=== PATIENT | female | born 1950 | race Two or more races ===

== ENCOUNTER 2017-08-04 12:13 | Outpatient (CLI) | payer OTHER, BC ==
[~2017-08-04 12:13] MED LIST: ALTACE1.25 M1 PO; BONIVA2.5 MG PO; MOTRIN800 MG PO; TRAMADOL HCL-AP1 TAB PO; ZOCOR5 MG PO
== END 2017-08-04 15:40 | disposition home or self-care (01) ==
LOC: RAD 501 12:13
DX: M25.571 Pain in right ankle and joints of right foot (principal)

== ENCOUNTER 2017-08-05 08:12 | Outpatient (CLI) | payer OTHER, BC | END 2017-08-05 08:15 | disposition home or self-care (01) | LOC: LAB 08:12 | DX: E03.8 Other specified hypothyroidism (principal); E55.9 Vitamin D deficiency, unspecified; M85.9 Disorder of bone density and structure, unspecified; E21.3 Hyperparathyroidism, unspecified; E88.89 Other specified metabolic disorders; M81.8 Other osteoporosis without current pathological fracture; E56.1 Deficiency of vitamin K; E83.42 Hypomagnesemia ==

== ENCOUNTER 2017-08-12 10:35 | Outpatient (CLI) | payer OTHER, BC | END 2017-08-12 14:42 | disposition home or self-care (01) | LOC: RAD 501 10:35 | DX: Z76.89 Persons encountering health services in other specified circumstances (principal); S20.212A Contusion of left front wall of thorax, initial encounter; S82.64XA Nondisplaced fracture of lateral malleolus of right fibula, initial encounter for closed fracture ==

== ENCOUNTER 2017-09-08 09:54 | Outpatient (CLI) | payer OTHER, BC | END 2017-09-08 10:03 | disposition home or self-care (01) | LOC: RAD 501 09:54 | DX: S82.64XD Nondisplaced fracture of lateral malleolus of right fibula, subsequent encounter for closed fracture with routine healing (principal) ==

== ENCOUNTER 2017-10-12 10:30 | Outpatient (CLI) | payer OTHER, BC | END 2017-10-12 10:52 | disposition home or self-care (01) | LOC: RAD 501 10:30 | DX: S82.64XG Nondisplaced fracture of lateral malleolus of right fibula, subsequent encounter for closed fracture with delayed healing (principal) ==

== ENCOUNTER 2018-07-28 15:40 | Outpatient (CLI) | payer OTHER, BC | END 2018-07-28 15:50 | disposition home or self-care (01) | LOC: RAD 501 15:40 | DX: M25.562 Pain in left knee (principal) ==

== ENCOUNTER → 2019-08-28 10:44 | Outpatient (CLI) | payer OTHER, BC | END | disposition home or self-care (01) | LOC: LAB 10:44 | DX: J11.1 Influenza due to unidentified influenza virus with other respiratory manifestations (principal); J20.0 Acute bronchitis due to Mycoplasma pneumoniae ==

== ENCOUNTER 2021-12-01 10:32 | Outpatient (CLI) | payer OTHER, BC | END 2021-12-01 15:00 | disposition home or self-care (01) | LOC: LAB 10:32 | PROVIDERS: ATTEND Physical Medicine & Rehabilitation | DX: G93.2 Benign intracranial hypertension (principal); E73.9 Lactose intolerance, unspecified; R22.43 Localized swelling, mass and lump, lower limb, bilateral; E87.1 Hypo-osmolality and hyponatremia; N18.9 Chronic kidney disease, unspecified ==

== ENCOUNTER → 2021-12-08 | Outpatient (CLI) | payer OTHER, BC | END | disposition home or self-care (01) | LOC: NUCLEAR 08:00 | PROVIDERS: ATTEND Physical Medicine & Rehabilitation | DX: I73.9 Peripheral vascular disease, unspecified (principal); I70.1 Atherosclerosis of renal artery ==

== ENCOUNTER 2021-12-09 08:02 | Outpatient (CLI) | payer OTHER, BC | END 2021-12-09 08:03 | disposition home or self-care (01) | LOC: NUCLEAR 08:02 | PROVIDERS: ATTEND Physical Medicine & Rehabilitation | DX: I73.9 Peripheral vascular disease, unspecified (principal) ==